=== PATIENT | male | born 1950 | race American Indian/Alaskan Native ===

== ENCOUNTER 2021-05-03 08:46 | Outpatient (CLI) | payer MEDICARE, OTHER ==
--- NOTE | 2021-05-03 11:12 | Cat Scan Report ---
CT ABDOMEN AND PELVIS WITHOUT CONTRAST INDICATION / CLINICAL INFORMATION: MALIGNANT NEOPLASM OF PROSTATE. TECHNIQUE: Axial CT images were obtained through the abdomen and pelvis without IV contrast. All CT scans at [facility] location are performed using CT dose reduction for ALARA by means of automated exposure control. COMPARISON: None available. FINDINGS: LOWER CHEST: No significant abnormality. LIVER: No significant abnormality. GALLBLADDER: No significant abnormality. BILE DUCTS: No significant abnormality. PANCREAS: No significant abnormality. SPLEEN: No significant abnormality. ADRENALS: No significant abnormality. RIGHT KIDNEY / URETER: No significant abnormality. LEFT KIDNEY / URETER: No significant abnormality. STOMACH / SMALL BOWEL: No significant abnormality. COLON: There is nonspecific mild circumferential rectal thickening on image 163 of series 2 without o ther associated significant abnormalities. No other significant abnormality is noted elsewhere along the colon. APPENDIX: No significant abnormality. PERITONEUM: No free fluid. No free air. No fluid collection. LYMPH NODES: No significant adenopathy. AORTA / ARTERIES: Normal caliber of the aorta with mild generalized atherosclerosis. IVC / VEINS: No significant abnormality. URINARY BLADDER: Mild bladder wall thickening is nonspecific. No perivesical inflammation or other si gnificant abnormality is seen. REPRODUCTIVE ORGANS: The prostate gland is enlarged and measures 5.1 x 4.9 x 4.9 cm. ADDITIONAL FINDINGS: None. SKELETAL SYSTEM: Multiple suspicious lucent lesions are seen along the sacrum along the midline and t o the right of midline. Some of these lesions may have an associated soft tissue component. A represe ntative lesion on image 143 of series 2 measures 6.1 x 3.0 cm. Multiple lucent lesions are also noted along the posterior wing of the right iliac bone and at the level of the pubic symphysis. IMPRESSION: 1. Multiple suspected bone metastases in the pelvis as above. 2. Enlargement of the prostate gland is compatible with the provided history of prostate cancer. 3. No other CT evidence of metastatic disease. 4. Additional findings as above. Signer Name: Alfonso Cano MD Signed: 05/03/2021 11:07 AM Workstation Name: [id number]
--- NOTE | 2021-05-03 12:49 | Nuclear Medicine Report ---
NUCLEAR MEDICINE BONE SCAN, WHOLE BODY INDICATION: MALIGNANT NEOPLASM OF PROSTATE. TECHNIQUE: 26.3 mCi of Tc-99m MDP were injected IV. Whole body images were obtained. COMPARISON: No previous bone scan. Correlation is made with CT abdomen and pelvis performed the same day.. FINDINGS: Skeletal Structures: Fairly symmetric, likely degenerative uptake is present involving the shoulders , sternoclavicular joints, thoracic spine, wrists and knees.. Skeletal Lesions: There is extensive increased radiotracer uptake throughout the sacrum, bilateral pu bic bones and bilateral posterior iliac bones which correlates with a multiple large lytic lesions se en on CT. There is also a focal area of intense uptake in the mid right tibia concerning for metastat ic disease.. Soft Tissues: Normal. Kidneys: Normal, symmetric activity. Additional Findings: None. IMPRESSION: Positive bone scan. Metastatic lesions are identified involving the sacrum, bilateral pubic bones, b ilateral posterior iliac bones and right tibia. Degenerative findings as described.. Signer Name: Ricky Koehler Jr, MD Signed: 05/03/2021 12:44 PM Workstation Name: [id number]
== END 2021-05-03 08:47 | disposition home or self-care (01) ==
LOC: NM 08:46
PROVIDERS: ATTEND Urology
DX: C61 Malignant neoplasm of prostate (principal); N40.0 Benign prostatic hyperplasia without lower urinary tract symptoms
CPT/HCPCS: 74176; 78306; A9503